=== PATIENT | male | born 1980 | race Caucasian/White ===

== ENCOUNTER 2019-03-19 18:28 | Emergency (ER) | payer SELFPAY ==
[2019-03-19 18:35] VITALS: Wt 113.6 kg
[2019-03-19] MEDS ORDERED: ERYTHROMYCIN OPT1 GM RIGHT EYE (21:05)
[2019-03-19 21:19] VITALS: BP 139/89
== END 2019-03-19 21:18 | disposition home or self-care (01) ==
LOC: D.ER 18:28
DX: S05.01XA Injury of conjunctiva and corneal abrasion without foreign body, right eye, initial encounter (principal); W50.0XXA Accidental hit or strike by another person, initial encounter; Y93.9 Activity, unspecified; Y92.9 Unspecified place or not applicable